=== PATIENT | female | born 1990 | race African-American/Black ===

== ENCOUNTER 2018-07-07 14:49 | Emergency (ER) | payer SELFPAY ==
[~2018-07-07] VITALS: Ht 165.1 cm; Wt 68.2 kg
[2018-07-07 19:37] VITALS: BP 113/65
== END 2018-07-07 20:34 | disposition home or self-care (01) ==
LOC: EMS 14:50
DX: G89.29 Other chronic pain (principal); R07.89 Other chest pain
CPT/HCPCS: 99283